=== PATIENT | male | born 1980 | race Two or more races ===

== ENCOUNTER → 2021-11-17 | Emergency (ER) | payer OTHER ==
[~2021-11-17] VITALS: Ht 175.3 cm; Wt 85.7 kg
[2021-11-17 22:10] VITALS: BP 151/105
--- NOTE | 2021-11-17 22:10 | NUR ---
Patient left without being seen by ER Physician Dr. Sen.
== END | disposition left against medical advice (07) ==
LOC: ER 21:53
DX: Z53.21 Procedure and treatment not carried out due to patient leaving prior to being seen by health care provider (principal)